=== PATIENT | male | born 1970 | race Caucasian/White ===

== ENCOUNTER → 2021-07-11 | Outpatient (CLI) | payer OTHER | LOC: KOH-I 10:01 | DX: M54.12 Radiculopathy, cervical region (principal); F41.8 Other specified anxiety disorders; I10 Essential (primary) hypertension; M53.3 Sacrococcygeal disorders, not elsewhere classified; M54.59 Other low back pain; R20.2 Paresthesia of skin; M47.26 Other spondylosis with radiculopathy, lumbar region | CPT/HCPCS: 72040; 72100 ==